=== PATIENT | female | born 1955 | race Caucasian/White ===

== ENCOUNTER 2021-05-13 10:55 | Inpatient (IN) | payer MEDICARE, MEDICAID ==
[2021-05-13 11:33] LABS: #Eosinphils 0.1 10x3/uL (0.0-0.5); #Monocytes 0.5 10x3/uL (0.0-1.1); #Neutrophils 3.8 10x3/uL (1.5-8.4); %Basophils 0.7 % (0.0-2.0); %Eosinophils 0.9 % (0.0-6.0); %Monocytes 8.4 % (0.0-10.0); %Neutrophils 64.7 % (40.0-75.0); Hemoglobin 13.8 g/dL (12.0-15.5); Mean Corpuscular HGB CONC 33.1 g/dL (32.0-36.0); Mean Corpuscular Hemoglobin 29.9 pg (27.0-33.0); Mean Corpuscular Volume 90.5 fl (81.6-98.3); Mean Platelet Volume 10.2 fl (7.4-10.4); Platelet Count 203 10x3/uL (150-450); RBC Distribution Width 13.1 % (11.5-14.5); Red Blood Cell (RBC) Count 4.61 10x6/uL (3.90-5.03); White Blood Cell (WBC) Count 5.9 10x3/uL (3.5-10.5)
[2021-05-13 11:45] LABS: ALT (SGPT) 9 U/L (8-55); AST (SGOT) 14 U/L (5-34); Alkaline Phosphatase 49 U/L (40-110); Anion Gap 13 mmol/L (10-20); BUN (Urea Nitrogen) 11 mg/dL (9.8-20.1); Bilirubin, Total 0.5 mg/dL (0.2-1.2); Calc. Creatinine Clearance 0 mL/min (70-130); Calcium 9.8 mg/dL (7.8-10.44); Carbon Dioxide 24 mmol/L (23-31); Chloride 103 mmol/L (98-107); Globulin 3.1 g/dL (2.4-3.5); Glucose 98 mg/dL (80-115); Potassium 4.2 mmol/L (3.5-5.1); Protein, Total 7.1 g/dL (5.8-8.1); Sodium 136 mmol/L (136-145)
[2021-05-13 12:10] LABS: CKMB 2.2 ng/mL (0-6.6)
[2021-05-13] MEDS ORDERED: Nitroglycerin 0.4 MG TAB (25 Tab Bottle) SL PRN (12:27)
[2021-05-13] MEDS ORDERED: Ondansetron ODT 4 MG TAB PO PRN (12:29)
[2021-05-13 13:05] LABS: Magnesium 2.1 mg/dL (1.6-2.6)
[2021-05-13] MEDS ORDERED: Clopidogrel Bisulfate 75 MG TAB ONE (13:19)
[2021-05-13 15:07] VITALS: BMI 33.8
[2021-05-13 16:47] LABS: Bilirubin Neg (Negative); Blood, Urine 25 (Negative); Clarity Cloudy (Clear); Glucose, Urine (Dipstick) Normal (Negative); Ketone, Urine 5 mg/dL (Negative); Leukocyte 500 (Negative); Nitrite Positive (Negative); Protein, Urine (Dipstick) 15 mg/dl (Neg-Trace); Urobilinogen Normal mg/dL (Less than 2)
[2021-05-13] MEDS: Acetaminophen 325 MG TAB PO PRN (16:49)
[2021-05-13 16:55] LABS: WBC/HPF Greater Than 50 HPF (0-3)
[2021-05-13 16:56] LABS: Bacteria/HPF 4+ HPF (None Seen); Squamous Epithelial 0-3 HPF (0-3)
[2021-05-13] MEDS: cefTRIAXone\\ROCEPHIN 1 GM in Sodium Chloride 0.9% 100 ML IVPB SCH (17:49)
[2021-05-14] MEDS: Acetaminophen 325 MG TAB PO PRN ×4 (05:20→23:33)
[2021-05-14 05:45] LABS: #Basophils 0.1 10x3/uL (0.0-0.2); #Eosinphils 0.1 10x3/uL (0.0-0.5); #Monocytes 0.4 10x3/uL (0.0-1.1); #Neutrophils 3.3 10x3/uL (1.5-8.4); %Basophils 0.9 % (0.0-2.0); %Eosinophils 2.3 % (0.0-6.0); %Lymphocytes 29.8 % (18.0-47.0); %Monocytes 7.7 % (0.0-10.0); %Neutrophils 58.9 % (40.0-75.0); Hemoglobin 13.6 g/dL (12.0-15.5); Mean Corpuscular HGB CONC 33.8 g/dL (32.0-36.0); Mean Corpuscular Hemoglobin 30.2 pg (27.0-33.0); Mean Corpuscular Volume 89.3 fl (81.6-98.3); Mean Platelet Volume 10.7 fl (7.4-10.4); Platelet Count 207 10x3/uL (150-450); RBC Distribution Width 13.2 % (11.5-14.5); White Blood Cell (WBC) Count 5.6 10x3/uL (3.5-10.5)
[2021-05-14 05:53] LABS: Troponin I 0.081 ng/mL (< 0.028)
[2021-05-14 06:00] LABS: Anion Gap 13 mmol/L (10-20); BUN (Urea Nitrogen) 10 mg/dL (9.8-20.1); Calc. Creatinine Clearance 106 mL/min (70-130); Calcium 9.3 mg/dL (7.8-10.44); Carbon Dioxide 21 mmol/L (23-31); Cardiac Risk 5.4 (Less than 4.5); Chloride 106 mmol/L (98-107); Cholesterol 200 mg/dl (< 200 Desired); Glucose 94 mg/dL (80-115); HDL Cholesterol 37 mg/dL (>60 Neg Risk); LDL Cholesterol, Calculated 150 mg/dL; Sodium 136 mmol/L (136-145); Triglycerides 64 mg/dL (Less than 150)
[2021-05-14] MEDS: Clopidogrel Bisulfate 75 MG TAB PO SCH (08:16)
[2021-05-14] MEDS ORDERED: Aspirin Chewable 81 MG TAB PO SCH (09:00)
[2021-05-14] MEDS ORDERED: Lorazepam 2 MG/ML VIAL SLOW IVP PRN (14:50)
[2021-05-14 16:24] LABS: SARS-CoV-2 PCR by NAA Not Detected (NotDetected)
[2021-05-14] MEDS: cefTRIAXone\\ROCEPHIN 1 GM in Sodium Chloride 0.9% 100 ML IVPB SCH (18:36)
[2021-05-14] MEDS: Atorvastatin Calcium 40 MG TAB PO SCH (20:48)
[2021-05-14] MEDS: OXcarbazepine 300 MG TAB PO SCH (20:48)
[2021-05-15] MEDS: Levothyroxine Sodium 75 MCG TAB PO SCH (04:53)
[2021-05-15] MEDS: Acetaminophen 325 MG TAB PO PRN (04:53)
[2021-05-15] MEDS: Clopidogrel Bisulfate 75 MG TAB PO SCH (08:43)
[2021-05-15] MEDS: Losartan Potassium 50 MG TAB PO SCH (08:43)
[2021-05-15] MEDS: DULoxetine 30 MG CAP PO SCH (08:43)
[2021-05-15] MEDS: OXcarbazepine 300 MG TAB PO SCH ×2 (08:43→21:23)
[2021-05-15] MEDS: HYDROcodone/Acetaminophen 5/325 mg Tablet PO PRN ×2 (11:19→17:50)
[2021-05-15] MEDS: cefTRIAXone\\ROCEPHIN 1 GM in Sodium Chloride 0.9% 100 ML IVPB SCH (17:51)
[2021-05-15] MEDS ORDERED: Nortriptyline 10 MG CAP PO SCH (21:00)
[2021-05-15] MEDS ORDERED: GABAPENTIN 250 MG/5 ML PO SCH (21:00)
[2021-05-15] MEDS: Atorvastatin Calcium 40 MG TAB PO SCH (21:23)
[2021-05-16 05:14] VITALS: BP 132/75
[2021-05-16] MEDS: Levothyroxine Sodium 75 MCG TAB PO SCH (05:48)
[2021-05-16] MEDS: HYDROcodone/Acetaminophen 5/325 mg Tablet PO PRN ×2 (05:53→12:36)
[2021-05-16] MEDS: Losartan Potassium 50 MG TAB PO SCH (08:25)
[2021-05-16] MEDS: Clopidogrel Bisulfate 75 MG TAB PO SCH (08:25)
[2021-05-16] MEDS: DULoxetine 30 MG CAP PO SCH (08:25)
[2021-05-16] MEDS ORDERED: Naproxen 500 MG TAB PO SCH (09:00)
[2021-05-16] MEDS: OXcarbazepine 300 MG TAB PO SCH (09:44)
[2021-05-16 10:26] VITALS: TEMP 97.3
== END 2021-05-16 14:10 | DRG 690 ==
LOC: CSHERS 10:55 → CSHTELE 14:46 → OBSVTOIN 05-15 10:42
PROVIDERS: ADMIT Internal Medicine; ATTEND Internal Medicine
DX: N39.0 Urinary tract infection, site not specified (principal); I10 Essential (primary) hypertension; E78.5 Hyperlipidemia, unspecified; M35.3 Polymyalgia rheumatica; G35 Multiple sclerosis; K21.9 Gastro-esophageal reflux disease without esophagitis; F17.210 Nicotine dependence, cigarettes, uncomplicated; R51.9 Headache, unspecified; R22.0 Localized swelling, mass and lump, head; F91.9 Conduct disorder, unspecified; G40.909 Epilepsy, unspecified, not intractable, without status epilepticus; E66.9 Obesity, unspecified; F41.9 Anxiety disorder, unspecified; Z20.822 Contact with and (suspected) exposure to COVID-19; F32.9 Major depressive disorder, single episode, unspecified; E03.9 Hypothyroidism, unspecified; Z88.0 Allergy status to penicillin; Z88.8 Allergy status to other drugs, medicaments and biological substances; Z68.33 Body mass index [BMI] 33.0-33.9, adult
CPT/HCPCS: 36415; 36416; 70450; 70487; 71045; 80048; 80053; 80061; 81001; 82553; 83605; 83690; 83735; 84443; 84484; 85025; 87077; 87086; 87186; 93005; 93306; 96374; 96376; G0378; J0696; J3490; U0003; U0005

== ENCOUNTER 2022-04-23 08:29 | Observation (INO) | payer MEDICARE, MEDICAID ==
[2022-04-23] MEDS ORDERED: Aspirin 300 MG Suppository ONE (09:21)
[2022-04-23 09:49] LABS: #Basophils 0.1 10x3/uL (0.0-0.2); #Eosinphils 0.5 10x3/uL (0.0-0.5); #Monocytes 0.3 10x3/uL (0.0-1.1); #Neutrophils 2.7 10x3/uL (1.5-8.4); %Eosinophils 10.5 % (0.0-6.0); %Lymphocytes 26.6 % (18.0-47.0); %Monocytes 6.7 % (0.0-10.0); Hemoglobin 11.3 g/dL (12.0-15.5); Mean Corpuscular HGB CONC 33.9 g/dL (32.0-36.0); Mean Corpuscular Hemoglobin 29.3 pg (27.0-33.0); Mean Corpuscular Volume 86.3 fl (81.6-98.3); Mean Platelet Volume 9.6 fl (7.4-10.4); Platelet Count 286 10x3/uL (150-450); Red Blood Cell (RBC) Count 3.86 10x6/uL (3.90-5.03)
[2022-04-23 09:53] LABS: Bilirubin Neg (Negative); Blood, Urine 250 (Negative); Glucose, Urine (Dipstick) Normal (Negative); Ketone, Urine Negative (Negative); Leukocyte 500 (Negative); Nitrite Negative (Negative); Protein, Urine (Dipstick) Negative (Neg-Trace); Urobilinogen Normal mg/dL (Less than 2)
[2022-04-23 09:57] LABS: INR-International Normal Ratio 1.1; PTT 27.8 sec (22.0-33.0); Prothrombin Time 11.6 sec (9.5-12.1)
[2022-04-23 10:00] LABS: Clarity Slightly Cloudy (Clear)
[2022-04-23 10:01] LABS: Amphetamine Not Detected (NotDetected); Barbiturates Screen Not Detected (NotDetected); Benzodiazepine Screen Not Detected (NotDetected); Cocaine Metabolite Screen Not Detected (NotDetected); Methadone Not Detected (NotDetected); Methamphetamine Not Detected (NotDetected); Opiate Screen Not Detected (NotDetected); Oxycodone Screen Not Detected (NotDetected); Phencyclidine (PCP) Not Detected (NotDetected); THC/Cannabinoid Screen Not Detected (NotDetected); Tricyclic Screen Detected (NotDetected)
[2022-04-23 10:09] LABS: ALT (SGPT) 12 U/L (8-55); AST (SGOT) 15 U/L (5-34); Albumin 3.6 g/dL (3.4-4.8); Alkaline Phosphatase 58 U/L (40-110); Anion Gap 12 mmol/L (10-20); BUN (Urea Nitrogen) 8 mg/dL (9.8-20.1); Bilirubin, Total 0.4 mg/dL (0.2-1.2); Calc. Creatinine Clearance 0 mL/min (70-130); Calcium 8.7 mg/dL (7.8-10.44); Carbon Dioxide 23 mmol/L (23-31); Chloride 102 mmol/L (98-107); Estimated GFR 96; Globulin 2.7 g/dL (2.4-3.5); Glucose 90 mg/dL (80-115); Potassium 4.1 mmol/L (3.5-5.1); Protein, Total 6.3 g/dL (5.8-8.1); Sodium 133 mmol/L (136-145)
[2022-04-23 10:10] LABS: Acetaminophen Less than 10.0 mcg/mL (10.0-30.0); Alcohol Less than 10 mg/dL (Less than 10); Salicylate Less than 8.0 mg/dL (15.0-30.0)
[2022-04-23 10:10] LABS: Squamous Epithelial 0-3 HPF (0-3)
[2022-04-23 10:11] LABS: Bacteria/HPF 3+ HPF (None Seen)
[2022-04-23] MEDS ORDERED: cefTRIAXone\\ROCEPHIN 2 GM VIAL ONE (10:57)
[2022-04-23] MEDS ORDERED: Acetaminophen 650 MG Suppository PR PRN (11:21)
[2022-04-23] MEDS ORDERED: Bisacodyl 10 MG SUPP PR PRN (11:21)
[2022-04-23] MEDS ORDERED: Ondansetron PF 4 MG/2 ML Vial IVP PRN (11:21)
[2022-04-23] MEDS ORDERED: Levofloxacin 250 mg/D5W 500 MG in Premix Bag 1 BAG IVPB SCH (11:45)
[2022-04-23 12:14] LABS: Troponin I 0.014 ng/mL (< 0.028)
[2022-04-23] MEDS: Sodium Chloride 0.9% 1,000 ML IV SCH (12:35)
[2022-04-23 12:48] VITALS: BMI 24.3
[2022-04-23] MEDS: Nicotine 21 MG PATCH TD SCH (12:56)
[2022-04-23] MEDS ORDERED: hydrOXYzine Pamoate 25 mg Capsule PO PRN (13:17)
[2022-04-23] MEDS ORDERED: Acetaminophen 500 MG TAB PO PRN (13:23)
[2022-04-23] MEDS ORDERED: OXcarbazepine 300 MG TAB PO SCH (13:30)
[2022-04-23] MEDS ORDERED: Iopamidol 300 61% 100 ML VIAL FS ONE (13:38)
[2022-04-23 14:54] LABS: Troponin I 0.019 ng/mL (< 0.028)
[2022-04-23] MEDS: Clindamycin/D5W 600 MG in Premix Bag 1 BAG IVPB SCH ×2 (15:01→22:37)
[2022-04-23] MEDS ORDERED: levETIRAcetam 500 MG/5 ML VIAL SLOW IVP SCH (15:30)
[2022-04-23] MEDS: OXcarbazepine 300 MG TAB PO SCH (20:38)
[2022-04-23] MEDS ORDERED: Atorvastatin Calcium 40 MG TAB PO SCH (21:00)
[2022-04-23] MEDS ORDERED: Cyclobenzaprine 10 MG TAB PO SCH (21:00)
[2022-04-23 21:05] LABS: Troponin I 0.017 ng/mL (< 0.028)
[2022-04-23] MEDS: Famotidine/PF 20 mg/2ml Vial SLOW IVP SCH (22:23)
[2022-04-23] MEDS: levETIRAcetam 500 MG/5 ML VIAL SLOW IVP SCH (22:23)
[2022-04-23] MEDS: Chlorhexidine Gluconate 15 ML UDCUP SSP SCH (23:55)
[2022-04-23] MEDS: Gabapentin 100 MG CAP PO SCH (23:56)
[2022-04-24] MEDS: Sodium Chloride 0.9% 1,000 ML IV SCH ×2 (02:09→09:20)
[2022-04-24] MEDS: Clindamycin/D5W 600 MG in Premix Bag 1 BAG IVPB SCH ×2 (04:42→14:38)
[2022-04-24 05:00] LABS: #Basophils 0.1 10x3/uL (0.0-0.2); #Eosinphils 0.7 10x3/uL (0.0-0.5); #Monocytes 0.4 10x3/uL (0.0-1.1); #Neutrophils 3.4 10x3/uL (1.5-8.4); %Eosinophils 11.7 % (0.0-6.0); %Lymphocytes 20.2 % (18.0-47.0); %Monocytes 6.8 % (0.0-10.0); Hemoglobin 11.5 g/dL (12.0-15.5); Mean Corpuscular HGB CONC 33.5 g/dL (32.0-36.0); Mean Corpuscular Volume 86.4 fl (81.6-98.3); Mean Platelet Volume 9.3 fl (7.4-10.4); Platelet Count 283 10x3/uL (150-450); RBC Distribution Width 13.8 % (11.5-14.5); Red Blood Cell (RBC) Count 3.97 10x6/uL (3.90-5.03); White Blood Cell (WBC) Count 5.7 10x3/uL (3.5-10.5)
[2022-04-24 05:24] LABS: Anion Gap 12 mmol/L (10-20); BUN (Urea Nitrogen) 7 mg/dL (9.8-20.1); Calc. Creatinine Clearance 101 mL/min (70-130); Calcium 8.9 mg/dL (7.8-10.44); Carbon Dioxide 22 mmol/L (23-31); Chloride 104 mmol/L (98-107); Estimated GFR 97; Glucose 89 mg/dL (80-115); Potassium 3.7 mmol/L (3.5-5.1); Sodium 134 mmol/L (136-145)
[2022-04-24 05:52] LABS: Cardiac Risk 3.1 (Less than 4.5); Cholesterol 140 mg/dl (< 200 Desired); HDL Cholesterol 45 mg/dL (>60 Neg Risk); LDL Cholesterol, Calculated 83 mg/dL; Triglycerides 60 mg/dL (Less than 150)
[2022-04-24] MEDS ORDERED: Levothyroxine Sodium 75 MCG TAB PO SCH (06:00)
[2022-04-24 07:58] LABS: ALT (SGPT) 14 U/L (8-55); AST (SGOT) 17 U/L (5-34); Albumin 3.9 g/dL (3.4-4.8); Alkaline Phosphatase 65 U/L (40-110); Anion Gap 17 mmol/L (10-20); BUN (Urea Nitrogen) 6 mg/dL (9.8-20.1); Bilirubin, Total 0.5 mg/dL (0.2-1.2); Calc. Creatinine Clearance 96 mL/min (70-130); Calcium 9.1 mg/dL (7.8-10.44); Carbon Dioxide 18 mmol/L (23-31); Chloride 106 mmol/L (98-107); Estimated GFR 96; Globulin 3.1 g/dL (2.4-3.5); Glucose 87 mg/dL (80-115); Potassium 3.8 mmol/L (3.5-5.1); Sodium 137 mmol/L (136-145)
[2022-04-24] MEDS ORDERED: MENTHOL TOP PRN (08:09)
[2022-04-24] MEDS ORDERED: [UNRECOGNIZED DRUG - OTHER] TOP PRN (08:09)
[2022-04-24] MEDS ORDERED: PRAMOXINE HCL TOP PRN (08:09)
[2022-04-24] MEDS ORDERED: traMADol HCl 50 MG TAB PO PRN (08:09)
[2022-04-24] MEDS ORDERED: Losartan Potassium 50 MG TAB PO SCH (09:00)
[2022-04-24] MEDS ORDERED: Multivit, Therapeutic 1 TAB PO SCH (09:00)
[2022-04-24] MEDS ORDERED: Enoxaparin Sodium 40 MG/0.4 ML SYRINGE SC SCH (09:00)
[2022-04-24] MEDS ORDERED: Clotrimazole 1% Cream 15 GM TUBE TOP SCH (09:00)
[2022-04-24] MEDS ORDERED: DULoxetine 30 MG CAP PO SCH (09:00)
[2022-04-24] MEDS ORDERED: Loratadine 10 MG TAB PO SCH (09:00)
[2022-04-24] MEDS ORDERED: LEVOCETIRIZINE DIHYDROCHLORIDE 5 MG PO SCH (09:00)
[2022-04-24] MEDS ORDERED: Clopidogrel Bisulfate 75 MG TAB PO SCH (09:00)
[2022-04-24] MEDS: levETIRAcetam 500 MG/5 ML VIAL SLOW IVP SCH (09:19)
[2022-04-24] MEDS: Gabapentin 100 MG CAP PO SCH (09:19)
[2022-04-24] MEDS: Famotidine/PF 20 mg/2ml Vial SLOW IVP SCH (09:19)
[2022-04-24] MEDS: Chlorhexidine Gluconate 15 ML UDCUP SSP SCH (09:27)
[2022-04-24] MEDS: OXcarbazepine 300 MG TAB PO SCH (09:27)
[2022-04-24] MEDS: Nicotine 21 MG PATCH TD SCH (12:27)
[2022-04-24 13:38] LABS: Hemoglobin A1c 4.8 % (4.0-6.0)
[2022-04-24 14:32] VITALS: BP 148/79; TEMP 97.2
[2022-04-24] MEDS ORDERED: Nortriptyline 10 MG CAP PO SCH (21:00)
[2022-04-26] MEDS ORDERED: FLU VACC QS2022-23(65YR UP)/PF 240 MCG/0.7 ML SYRINGE IM ONE (20:00)
== END 2022-04-24 15:15 | disposition home or self-care (01) ==
LOC: CSHERS 08:29 → INTOOBSV 12:11 → CSHTELE 12:11
PROVIDERS: ADMIT Internal Medicine Geriatric Medicine; ATTEND Hospitalist
DX: R41.82 Altered mental status, unspecified (principal); R68.84 Jaw pain; R22.0 Localized swelling, mass and lump, head; K08.89 Other specified disorders of teeth and supporting structures; G35 Multiple sclerosis; F03.90 Unspecified dementia, unspecified severity, without behavioral disturbance, psychotic disturbance, mood disturbance, and anxiety; E86.0 Dehydration; E87.1 Hypo-osmolality and hyponatremia; N39.0 Urinary tract infection, site not specified; K21.9 Gastro-esophageal reflux disease without esophagitis; R11.2 Nausea with vomiting, unspecified; I10 Essential (primary) hypertension; E03.9 Hypothyroidism, unspecified; E78.5 Hyperlipidemia, unspecified; F41.9 Anxiety disorder, unspecified; F32.A Depression, unspecified; G40.909 Epilepsy, unspecified, not intractable, without status epilepticus; M35.3 Polymyalgia rheumatica; F17.210 Nicotine dependence, cigarettes, uncomplicated; Z20.822 Contact with and (suspected) exposure to COVID-19; Z86.73 Personal history of transient ischemic attack (TIA), and cerebral infarction without residual deficits; Z79.02 Long term (current) use of antithrombotics/antiplatelets; Z79.899 Other long term (current) drug therapy; Z88.0 Allergy status to penicillin; Z88.6 Allergy status to analgesic agent
CPT/HCPCS: 0042T; 70450; 70551; 71045; 80048; 80053; 80061; 80306; 80307; 82962; 83036; 83605; 84484 ×2; 85025; 85610; 85730; 87040; 93005; 93306; 95819; 95957; 96361; 96365; 96372; 96375; 96376 ×2; 97139; 99285; G0378 ×3; J1953 ×2; U0003; U0005; 36415; 36416; 81003; 81015; 84443; 95816; J0696; J1650; J1956; J3490; J7050; Q9967; S0028